=== PATIENT | female | born 1960 | race Hispanic/Latino ===

== ENCOUNTER 2017-05-03 09:51 | Observation (INO) | payer BC ==
[~2017-05-03] VITALS: Ht 157.5 cm; Wt 77.8 kg
[~2017-05-03 09:51] MED LIST: ACTONEL5 MG OR; AMOXICILLIN500 MG PO; TAM75CAP PO; TRIMOX500 MG PO
[2017-05-03 11:04] LABS: HEMATOCRIT 41.5 % (37.0-47.0); HEMOGLOBIN 14.2 g/dl (12.0-16.0); IMMATURE GRANULOCYTES 0.8 % (0.0-1.0); MEAN CELL VOLUME 91.2 fL CALC (80.0-100.0); MEAN CORPUSCULAR HGB 31.2 pG CALC (26.0-32.0); MEAN CORPUSCULAR HGB CONC 34.2 g/L CALC (32.0-36.0); NEUT# 3.52 thou/uL (2.00-7.15); RED BLOOD COUNT 4.55 mill/uL (4.20-5.60); RED CELL DISTRI WIDTH 12.6 % (11.5-15.5)
[2017-05-03 11:20] LABS: INTERNATIONAL NORMALIZED RATIO 0.9 RATIO (0.7-1.3)
[2017-05-03 11:21] LABS: ALBUMIN 4.8 g/dL (3.2-5.0); ALKALINE PHOSPHATASE 107 u/l (38-126); ANION GAP 18 (6-22 (CALC)); BILIRUBIN, TOTAL 0.6 mg/dL (0.0-1.4); BUN 15 mg/dL (7-17); BUN/CREATININE RATIO 24 (12-20 (CALC)); CALCIUM 9.2 mg/dL (8.4-10.2); CARBON DIOXIDE 22 mmol/l (22-30); CHLORIDE 106 mmol/l (95-108); CREATININE 0.6 mg/dL (0.5-1.0); GFR > 60 ML/MIN (>=60 (CALC)); GFR FOR AFR.AMER. > 60 ML/MIN (>=60 (CALC)); GLUCOSE 119 mg/dL (65-105); POTASSIUM 4.3 mmol/l (3.5-5.1); SGOT/AST 25 u/l (14-36); SGPT/ALT 35 u/l (9-52); SODIUM 142 mmol/l (137-146); TOTAL PROTEIN 8.2 g/dL (6.3-8.2)
[2017-05-03 11:34] LABS: MYOGLOBIN 86 ng/mL (0 - 62)
[2017-05-03 13:50] VITALS: BP 151/83
[2017-05-03 16:50] VITALS: BP 149/81
[2017-05-03 19:33] VITALS: BP 123/68
[2017-05-04 00:07] VITALS: BP 118/71
[2017-05-04 04:22] VITALS: BP 99/65
[2017-05-04 08:05] VITALS: BP 116/51
[2017-05-04 11:15] VITALS: BP 124/53
[2017-05-04] MEDS ORDERED: ANTIVERT PO (14:52)
[2017-05-04] MEDS ORDERED: IBUPROFEN600 MG PO (14:52)
== END 2017-05-04 15:17 | disposition home or self-care (01) | DRG 149 ==
LOC: ENPENDDIS → ED 09:51 → ED-I 12:25 → ED 13:17 → MS2 13:18
PROVIDERS: Emergency Medicine; ADMIT Internal Medicine; ATTEND Internal Medicine
DX: R42 Dizziness and giddiness (principal); M81.0 Age-related osteoporosis without current pathological fracture
CPT/HCPCS: A9579; G0378; J1650

== ENCOUNTER 2017-07-02 18:42 | Emergency (ER) | payer BC ==
[~2017-07-02] VITALS: Ht 157.5 cm; Wt 77.1 kg
[~2017-07-02 18:42] MED LIST changes: +ANTIVERT PO; +IBUPROFEN600 MG PO
[2017-07-02] MEDS ORDERED: ZITHROMAX250 MG PO (20:34)
[2017-07-02] MEDS ORDERED: MUCINEX600 MG PO (20:34)
[2017-07-02 20:59] VITALS: BP 138/73
== END 2017-07-02 20:59 | disposition home or self-care (01) | DRG 153 ==
LOC: ED 18:42
DX: J06.9 Acute upper respiratory infection, unspecified (principal)